=== PATIENT | female | born 1965 | race Caucasian/White ===

== ENCOUNTER 2020-06-25 10:54 | Emergency (ER) | payer OTHER ==
[~2020-06-25] VITALS: Ht 149.9 cm; Wt 81.6 kg
[2020-06-25] MEDS: HYDROCODONE/APAP 7.5MG-325MG 1 EA TAB PO PRN (11:36)
[2020-06-25] MEDS: TETANUS/DIPHTHERIA TOX ADULT 0.5 ML SYR IM ONE (12:00)
[2020-06-25] MEDS ORDERED: AUGMENTIN 875-1 EACH PO (12:07)
== END 2020-06-25 12:20 | disposition home or self-care (01) ==
LOC: ER 11:00
DX: S61.431A Puncture wound without foreign body of right hand, initial encounter (principal); Z23 Encounter for immunization; W10.9XXA Fall (on) (from) unspecified stairs and steps, initial encounter; W26.8XXA Contact with other sharp object(s), not elsewhere classified, initial encounter
CPT/HCPCS: 90714; 99283